=== PATIENT | male | born 1975 ===

== ENCOUNTER 2021-04-02 03:42 | Emergency (ER) | payer SELFPAY ==
--- NOTE | 2021-04-02 03:50 | ED.LOWEXIN ---
HPI - Extremity Injury (Lower) General Chief Complaint: Extremity Injury, Lower Stated Complaint: Left foot pain Time Seen by Provider: 04/02/21 03:50 Source: patient Mode of arrival: Wheelchair Limitations: no limitations History of Present Illness HPI Narrative: 46-year-old male nonsmoker with noncontributory medical history presents with a friend and a chief complaint of pain swelling and redness in his left great toe in the absence of injury. His symptoms started a few days ago and he now has sharp, stabbing pain that is worse with any motion and ambulation. As stated, he denies any injury. He has had no fever or chills. He denies any nausea, vomiting or diarrhea. He states he has had a few episodes of this in the past and most recently was seen by his chiropractor on when he actually had pain under his heel. The examination was thought to be consistent with plantar fasciitis and he has been wearing a splint that he picked up at the drugstore since. He now has a complete resolution of the pain on his heel but presents with what is described above. He denies a history of clot, recent travel, or history of cancer. He denies a known history of gout, but does state this has happened a few times before. He admits to a diet of meat, potatoes, cheese, and does drink alcohol. MD complaint: foot injury Onset (ago): day(s) Injury: Left: toes Severity: moderate Relieving factors: nothing Exacerbating factors: weight bearing and movement Other symptoms: none Related Data Previous Rx's Medication Instructions Recorded indomethacin 50 mg PO TID #20 cap 04/02/21 Allergies Allergy/AdvReac Type Severity Reaction Status Date / Time Penicillins Allergy Anaphylaxis Verified 04/02/21 03:56 Review of Systems Constitutional Constitutional: Denies chills, Denies fatigue, Denies fever(s), Denies frequent falls, Denies lethargy and Denies weakness Eyes Eyes: Denies change in vision, Denies eye discharge, Denies irritation and Denies loss of vision ENT Ears, Nose, Mouth, and Throat: Denies change in voice, Denies dizziness, Denies neck pain, Denies sore throat and Denies throat swelling Cardiovascular Cardiovascular: Denies chest pain, Denies irregular heart rhythm, Denies lightheadedness, Denies palpitations, Denies dyspnea, Denies dyspnea on exertion and Denies orthopnea Respiratory Respiratory: Denies cough, Denies dyspnea, Denies dyspnea on exertion and Denies wheezing Gastrointestinal Gastrointestinal: Denies abdominal pain, Denies change in bowel habits, Denies diarrhea, Denies nausea and Denies vomiting Musculoskeletal Musculoskeletal: Reports arthralgias, Reports joint swelling, Denies neck pain and Denies numbness Integumentary/Breasts Skin/Breast: Denies pruritus, Reports erythema, Denies rash, Reports skin pain, Reports skin swelling and Denies wounds Neurologic Neurologic: Denies behavioral changes, Denies confusion, Denies dizziness, Denies frequent falls, Denies loss of vision, Denies numbness and Denies weakness Psychiatric Psychiatric: Denies anxiety, Denies behavioral changes, Denies confusion, Denies depression, Denies homicidal ideation and Denies suicidal ideation Endocrine Endocrine: Denies fatigue, Denies flushing and Denies palpitations Hematologic/Lymphatic Hematologic/Lymphatic: Denies easy bruising Allergic/Immunologic Allergic/Immunologic: Denies urticaria, Denies throat swelling and Denies wheezing Patient History Social History Smoking Status: Never smoker Smoking Status: Never smoker alcohol intake frequency: 0-2 drinks per day Substance Use Type: does not use Exam Narrative Exam Narrative: GEN: AOx3 and in mild distress EYES: Pupils are equal, round, and reactive to light and accommodation. Extraoccular muscles are intact bilaterally. There is no subconjunctival hemorrhage or exudate. CHEST: Lungs are clear to auscultation bilaterally and free of wheezes, rales, or rhonchi. Heart rate is regular rhythm, there are no murmurs, clicks, rubs, or gallops. There is no chest wall tenderness. ABD: Abdomen is soft and nontender. There is no guarding or rebound. Bowel sounds are normal in all 4 quadrants. There is no mass or organomegaly. EXT: Mild swelling of left foot, most notable at the 1st metatarsophalangeal joint with some erythema and warmth. He has significant pain on palpation as well as both passive and active flexion and extension of the toe. Sensation is intact. There is no erythema beyond the joint. No pain on plantar surface or at the heel. SKIN: Warm, pink, and dry. No erythema or rash Initial Vital Signs Initial Vital Signs: Vital Signs Temperature 97.7 F 06/02/17 03:56 Pulse Rate 89 06/04/21 03:56 Respiratory Rate 18 04/02/21 03:56 Blood Pressure 145/94 H 04/02/21 03:56 Pulse Oximetry 97 04/02/21 03:56 Course Orders Ordered: Discontinued Medications Hydrocodone Bitart/Acetaminophen (Hydrocodone/Acet 5/325 Prepack) 1 bottle MISC SEEINSTR ONE Stop: 04/02/21 05:26 Last Admin: 04/02/21 05:31 Dose: 1 bottle Documented by: BRANDO Colchicine (Colchicine 0.6 Mg Tablet) 1.2 mg PO NOW ONE Stop: 04/02/21 04:00 Last Admin: 04/02/21 04:35 Dose: 1.2 mg Documented by: BRANDO Colchicine (Colchicine 0.6 Mg Tablet) 0.6 mg PO NOW ONE Stop: 04/02/21 04:45 Last Admin: 04/02/21 05:31 Dose: 0.6 mg Documented by: BRANDO MDM - Extremity Injury (Lower) Lab Data Result diagrams: 04/02/21 04:05 Labs: Lab Results 04/02/21 04/02/21 Range/Units 04:05 04:05 WBC 7.3 (4.5-11.0) X10^3/uL RBC 4.76 (4.5-5.9) X10^6/uL Hgb 15.0 (13.5-17.5) g/dL Hct 43.2 (41-53) % MCV 90.6 (80-100) fL MCH 31.5 (26-34) PG MCHC 34.8 (30-36) % RDW 12.4 (11.6-14.8) % Plt Count 216 (150-400) X10^3/uL Neut % (Auto) 46.6 L (50-75) % Lymph % (Auto) 40.0 (25-40) % [place]dwell % (Auto) 10.3 (3-14) % Eos % (Auto) 2.5 (2-4) % Baso % (Auto) 0.6 (0-2) % Neut # (Auto) 3400 (4473-7222) /uL Lymph # (Auto) 2900 (3238-0119) /uL [place]dwell # (Auto) 700 (0-900) /uL Eos # (Auto) 200 (0-450) /uL Baso # (Auto) 0 (0-100) /uL ESR 17 H (0-15) MM/HR Uric Acid 10.1 H (3.5-8.5) mg/dL C-Reactive Protein 2.4 H (<1.0) mg/dL Discharge Plan Departure Patient Disposition: Home Clinical Impression: Great toe pain, Gouty arthritis of great toe Instructions: DI for Gout Activity Restrictions/Additional Instructions: *You have been diagnosed with [left great toe pain and swelling, most likely due to gouty arthritis] *What to do: *Please continue to take your regular medications as directed. [ x] New medication prescriptions sent to your pharmacy: [ ] [ ] New medication written as a paper prescription [ ] No new medications given *Please follow up with your primary care provider in 2-3 days, call for an appointment. Let them know you were seen in the Emergency Department and that we ask that you be seen in follow up. We will electronically transmit a record of today's note if your PCP is in our system *If you do not have a primary care provider please contact the [facility] Resource line at [phone]. They will ask some questions about your medical history and help get you set up with a doctor in the community. *Return to Emergency Department if you should have any new, worsening or concerning symptoms, such as [fever greater than 101 F, shaking chills, worsening pain, persistent vomiting or other bothersome symptoms] Prescriptions: New indomethacin 50 mg capsule 50 mg PO TID Qty: 20 RF: 0
[2021-04-02 03:56] VITALS: BP 145/94; PULSE 89; RESP 18; TEMP 36.5; O2SAT 97; BMI 31.9
[2021-04-02] MEDS: COLCHICINE 0.6 MG TABLET 1.2 MG PO (04:35)
[2021-04-02 04:36] LABS: Add Manual Diff / Slide Review NO; Basophils Absolute Auto 0 /uL (0-100); Basophils Percent Auto 0.6 % (0-2); Eosinophils Absolute Auto 200 /uL (0-450); Eosinophils Percent Auto 2.5 % (2-4); Hematocrit 43.2 % (41-53); Lymphocytes Absolute Auto 2900 /uL (1100-4500); Mean Corpuscular HGB Conc 34.8 % (30-36); Mean Corpuscular Hemoglobin 31.5 PG (26-34); Mean Corpuscular Volume 90.6 fL (80-100); Monocytes Absolute Auto 700 /uL (0-900); Monocytes Percent Auto 10.3 % (3-14); Neutrophils Absolute Auto 3400 /uL (1500-7000); Neutrophils Percent Auto 46.6 % (50-75); Platelet Count 216 X10^3/uL (150-400); Red Blood Cell Count 4.76 X10^6/uL (4.5-5.9); Red Cell Distribution Width 12.4 % (11.6-14.8); White Blood Cell Count 7.3 X10^3/uL (4.5-11.0)
[2021-04-02 04:43] LABS: C-Reactive Protein Quant 2.4 mg/dL (<1.0); Uric Acid 10.1 mg/dL (3.5-8.5)
[2021-04-02 04:50] LABS: Erythrocyte Sedimentation Rate 17 MM/HR (0-15)
[2021-04-02] MEDS: COLCHICINE 0.6 MG TABLET PO (05:31)
[2021-04-02] MEDS: HYDROCODONE/ACET 5/325 PREPACK 1 BOTTLE MISC (05:31)
[2021-04-02 05:41] VITALS: BP 120/76; PULSE 74; RESP 20; O2SAT 98
== END 2021-04-02 05:42 | disposition home or self-care (01) ==
PROVIDERS: Emergency Provider Emergency Medicine
DX: M10.9 Gout, unspecified (principal); M79.675 Pain in left toe(s)
CPT/HCPCS: 36415; 84550; 85025; 85651; 86140; 99283